=== PATIENT | male | born 1955 | race American Indian/Alaskan Native ===

== ENCOUNTER 2017-08-25 19:49 | Emergency (ER) | payer OTHER ==
[2017-08-25] MEDS ORDERED: MOTRIN PO ONE (21:21)
[2017-08-25] MEDS ORDERED: NORCO 5/325 PO ONE (21:21)
[2017-08-25] MEDS ORDERED: ZESTRIL PO ONE (21:24)
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
[2017-08-26 02:51] VITALS: BP 169/98
== END 2017-08-25 22:30 | disposition home or self-care (01) ==
LOC: ED 19:49
DX: S39.012A Strain of muscle, fascia and tendon of lower back, initial encounter (principal); S16.1XXA Strain of muscle, fascia and tendon at neck level, initial encounter; I10 Essential (primary) hypertension; V49.49XA Driver injured in collision with other motor vehicles in traffic accident, initial encounter; Y93.89 Activity, other specified; Y92.89 Other specified places as the place of occurrence of the external cause; Y99.8 Other external cause status
CPT/HCPCS: 99283